=== PATIENT | male | born 1950 | race Asian ===

== ENCOUNTER 2023-02-24 13:40 | Emergency (ER) | payer OTHER ==
[~2023-02-24] VITALS: Ht 167.6 cm; Wt 66.7 kg
[~2023-02-24 13:40] MED LIST: NIFEDIPINE XL30 MG PO
== END 2023-02-24 16:40 | disposition home or self-care (01) ==
LOC: ER 13:40
DX: S90.872A Other superficial bite of left foot, initial encounter (principal); W54.0XXA Bitten by dog, initial encounter; Y93.9 Activity, unspecified; Y92.89 Other specified places as the place of occurrence of the external cause; Y99.9 Unspecified external cause status; I10 Essential (primary) hypertension
CPT/HCPCS: 90471; 90714; 99283; J1670